=== PATIENT | male | born 1990 | race Caucasian/White ===

== ENCOUNTER → 2017-11-10 | Day surgery (SDC) | payer OTHER ==
[2017-11-03 13:59] VITALS: BMI 28.7
[~2017-11-10] MED LIST: BUPIVACAIN-EPI 0.25%-1:200,000 30 ML VIAL SQ ONE; GLYCOPYRROLATE 0.2 MG/ML 2 ML VIAL ONE; HEPARIN SODIUM,PORCINE 5,000 UNIT/ML 1 ML VIAL SQ ONE; HYDROcodone/APAP 7.5-325MG 1 EACH TAB PO ONE; HYDROmorphone (PF) 1 MG/ML ONE; HYDROmorphone 0.5 MG/0.5 ML SYRINGE IVP PRN; KETOROLAC 30 MG/ML 1 ML VIAL IVP ONE; LACTATED RINGERS 1,000 ML IV ONE; LACTATED RINGERS 1,000 ML IV SCH; LIDOCAINE 1% 20 ML VIAL (10MG/ML) FOR IV START INTRADERMA ONE; LIDOCAINE 1% INJ 10MG/ML (20 ML MDV) ONE; MIDAZOLAM 2 MG/2 ML VIAL ONE; MORPHINE SULFATE 2 MG/ML SYRINGE IV PRN; NEOSTIGMINE 1 MG/ML 10 ML VIAL ONE; ONDANSETRON 4 MG/2 ML VIAL IVP PRN; PROPOFOL 10 MG/ML 20 ML VIAL IV ONE; ROCURONIUM BROMIDE 10 MG/ML 10 ML VIAL IV ONE; ROPIVACAINE 5 MG/ML 30 ML VIAL MISCELLANE ONE; ceFAZolin IN SWFI 2 GM/20 ML SYRINGE IVP ONE; fentaNYL (PF) 50 MCG/ML 2 ML AMP ONE
--- NOTE | 2017-11-10 08:05 | P.GSHP ---
History of Present Illness H&P Date: 11/10/17 Chief Complaint: ventral hernia The 6.5-year-old male presents today for laparoscopic robotic-assisted repair of ventral hernia. Patient developed a tender mass located approximately 4 cm above the umbilicus. Past Medical History Additional Past Medical History / Comment(s): VENTRAL HERNIA., PIONIDAL CYST WITH OCCASIONAL DRAINAGE. History of Any Multi-Drug Resistant Organisms: None Reported Past Surgical History: Orthopedic Surgery Additional Past Surgical History / Comment(s): LEFT SHOULDER LABRUM SURGERY (10 WEEKS AGO)., ORAL PROCEDURE AT 14 YRS OLD (CLIPPING) Past Anesthesia/Blood Transfusion Reactions: No Reported Reaction Past Psychological History: No Psychological Hx Reported Smoking Status: Never smoker Past Alcohol Use History: Occasional Additional Past Alcohol Use History / Comment(s): SMOKED OCCASIONAL CIGAR. Past Drug Use History: Marijuana Additional Drug Use History / Comment(s): INSTRUCTED - NO MARIJUANA FOR AT LEAST 24 HOURS PRIOR TO SURGERY. - Past Family History Mother Family Medical History: No Reported History Medications and Allergies Home Medications Medication Instructions Recorded Confirmed Type Ibuprofen [Motrin] 800 mg PO TID 11/03/17 11/03/17 History Allergies Allergy/AdvReac Type Severity Reaction Status Date / Time No Known Allergies Allergy Verified 11/10/17 07:14 Surgical - Exam Vital Signs Temp Pulse Resp BP Pulse Ox 97.4 F L 65 16 141/79 9 L 11/10/17 07:12 11/10/17 07:12 11/10/17 07:12 11/10/17 07:12 11/10/17 07:12 - General well developed, well nourished, no distress - Eyes PERRL, normal ocular movement - ENT normal pinna - Neck no masses - Respiratory normal expansion - Cardiovascular Rhythm: regular - Abdomen Abdomen: soft, non tender Hernia: reducible (3 cm reducible ventral hernia) Assessment and Plan Assessment: 4 cm ventral hernia. We'll perform laparoscopic robotic-assisted repair.
[2017-11-10 09:40] VITALS: TEMP 99
[2017-11-10] MEDS: MEPERIDINE 50 MG/ML SYRINGE IVP ONE ×2 (09:45→09:51)
--- NOTE | 2017-11-10 10:02 | P.OP ---
Date of Procedure: 11/10/17 Preoperative Diagnosis: Ventral hernia Postoperative Diagnosis: Incarcerated ventral hernia Procedure(s) Performed: Laparoscopic robotic-assisted repair of incarcerated ventral hernia Partial omentectomy Anesthesia: ROSCOE Surgeon: Lucho Bean Estimated Blood Loss (ml): 5 Pathology: other (Incarcerated fat/omentum) Condition: stable Disposition: PACU Description of Procedure: The patient was placed on the operating table in the supine position. He received general anesthesia. His abdomen was prepped and draped usual fashion. Using a Veress needle the pneumoperitoneum and was achieved in the left upper quadrant. Using a 5 mm optical trocar under direct visualization the peritoneal cavity was entered in the left lower quadrant. The abdomen was then insufflated through the 5 mm trocar.. The laparoscope was placed back into the perineal cavity. Next a 8 mm robotic trocar was placed in the right lower quadrant and a 12 mm robotic trocar was placed in the low midline position position. The original 5 mm trocar was exchanged for a 8 mm robotic trocar. The patient's placed in the mild reverse Trendelenburg position. And the patient was docked to the robot. The incisional hernia was visualized. The patient had incarcerated omentum within the hernia. Using the cautery was dissected free. The incarcerated fat and omentum were transected. Using hook cautery the peritoneum over the incisional hernia was excised. The fascial opening was repaired using 0V LOC suture. Next a piece of 11 cm round ventral light ST mesh was placed into the. Cavity and secured with 2 OV lock suture. The patient was undocked the robot. The needles were retrieved. Incarcerated omentum/fat was removed and sent to pathology. The fascia of the 12 mm trocar site was closed with 0 Ethibond suture. Skin was closed interrupted 3-0 Monocryl suture. Dermabond dressings was applied. Patient tolerated procedure well and was sent to recovery room stable condition.
[2017-11-10 12:25] VITALS: BP 130/78; PULSE 70; RESP 16
== END | disposition home or self-care (01) ==
LOC: OR 06:45
PROVIDERS: ATTEND Surgery
DX: K43.0 Incisional hernia with obstruction, without gangrene (principal); Z87.891 Personal history of nicotine dependence; Z79.1 Long term (current) use of non-steroidal anti-inflammatories (NSAID)
CPT/HCPCS: 49655; S2900; 88302